=== PATIENT | female | born 1935 | race Caucasian/White ===

== ENCOUNTER 2018-07-01 19:22 | Emergency (ER) | payer MEDICARE ==
--- NOTE | 2018-07-01 20:09 | EDM.PDOC ---
ED HPI GENERAL MEDICAL PROBLEM - General Chief Complaint: Abdominal Pain Stated Complaint: MED VIA AMB Time Seen by Provider: 07/01/18 19:58 Source of Information: Reports: Patient, EMS, Family, RN Notes Reviewed History Limitations: Reports: Physical Impairment - History of Present Illness INITIAL COMMENTS - FREE TEXT/NARRATIVE: 82-year-old female presents to the emergency department today via EMS services, she is a jail resident with significant dementia difficult to obtain any history from her. Per jail notes she had a syncopal event earlier today became very hypotensive also complained of abdominal pain at that time. Now she has no complaints but is difficult to keep on track therefore the majority of this history and review of systems was taken from chart review and EMS - Related Data Allergies Allergy/AdvReac Type Severity Reaction Status Date / Time Penicillins Allergy Intermediate Cannot Verified 07/01/18 19:38 Remember guaifenesin Allergy Cannot Verified 07/01/18 19:38 Remember Sulfa (Sulfonamide Allergy Cannot Verified 07/01/18 19:38 Antibiotics) Remember Home Meds: Home Meds Losartan Potassium 100 mg PO DAILY 11/30/13 [History] PARoxetine HCl [Paroxetine HCl] 10 mg PO DAILY 11/30/13 [History] QUEtiapine Fumarate [Quetiapine Fumarate] 25 mg PO DAILY 07/01/18 [History] Past Medical History 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: Reports: Hypertension 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: Musculoskeletal History: Reports: Arthritis Neurological History: Reports: Alzheimers Disease, Other (See Below) Other Neuro History: chronic tension headache Psychiatric History: Reports: Anxiety, Dementia, Other (See Below) Other Psychiatric History: delusional disorder Social & Family History - Tobacco Use Smoking Status *Q: Never Smoker - Caffeine Use Caffeine Use: Reports: Coffee - Recreational Drug Use Recreational Drug Use: No ED ROS GENERAL - Review of Systems Review Of Systems: Unable To Obtain ED EXAM, GI/ABD - Physical Exam Exam: See Below Text/Narrative:: General: Elderly female not in any distress, alert HEENT: head is atraumatic normocephalic, eyes pupils equal round reactive to light, sclera clear no conjunctivitis appreciated. Ears tympanic membranes clear and pagan landmarks and light reflex are present bilaterally canals are clear. Nose no septal deviation, nares are clear, no blood present. Mouth mucosa is moist and pink no erythema or exudate noted in soft palate, tongue is midline uvula is midline , dentition is intact. Neck: Supple no thyromegaly no tracheal deviation. Nodes: Cervical nodes subclavicular nodes nontender no palpable lymphadenopathy noted. Lungs: Crackles in the bases bilaterally with good aeration throughout all lung mondragon CV: Regular rate and rhythm S1 and S2 appreciated no murmurs rubs or gallops noted. Abdomen: Soft, nontender, no palpable masses or organomegaly appreciated, no distention no guarding bowel sounds are present, . Neuro: Cranial nerves II through XII grossly intact Skin: Warm and dry, intact Extremities: No lower extremity edema appreciated, Course - Vital Signs Last Recorded V/S: Last Vital Signs Temp 97.0 F 07/01/18 19:33 Pulse 62 07/01/18 19:33 Resp 16 07/01/18 19:33 BP 119/72 07/01/18 19:33 Pulse Ox 99 07/01/18 19:33 - Orders/Labs/Meds Orders: Active Orders 24 hr Category Date Time Status EKG Documentation Completion [RC] ASDIRECTED Care 07/01/18 20:07 Active UA W/MICROSCOPIC [URIN] Urgent Lab 07/01/18 20:44 Ordered Lactated Ringers [Ringers, Lactated] 1,000 ml Med 07/01/18 20:15 Active IV ASDIRECTED EKG 12 Lead [EK] Stat Ther 07/01/18 20:07 Ordered Medication Orders Lactated Ringer's (Ringers, Lactated) 1,000 mls @ 500 mls/hr IV ASDIRECTED MARQUES Last Admin: 07/01/18 20:56 Dose: 500 mls/hr Labs: Laboratory Tests 07/01/18 07/01/18 07/01/18 Range/Units 20:06 20:06 20:06 WBC 11.5 H (4.5-11.0) K/uL RBC 4.24 (3.30-5.50) M/uL Hgb 12.6 (12.0-15.0) g/dL Hct 37.5 (36.0-48.0) % MCV 88 (80-98) fL MCH 30 (27-31) pg MCHC 34 (32-36) % Plt Count 234 (150-400) K/uL Neut % (Auto) 81 H (36-66) % Lymph % (Auto) 12 L (24-44) % [place] % (Auto) 6 (2-6) % Eos % (Auto) 0 L (2-4) % Baso % (Auto) 0 (0-1) % Sodium 139 L (140-148) mmol/L Potassium 3.7 (3.6-5.2) mmol/L Chloride 104 (100-108) mmol/L Carbon Dioxide 26 (21-32) mmol/L Anion Gap 12.7 (5.0-14.0) mmol/L BUN 17 D (7-18) mg/dL Creatinine 0.9 (0.6-1.0) mg/dL Est Cr Clr Drug Dosing 37.91 mL/min Estimated GFR (MDRD) > 60 (>60) Glucose 157 H (74-106) mg/dL Lactic Acid 1.3 (0.4-2.0) mmol/L Calcium 9.2 (8.5-10.1) mg/dL Total Bilirubin 0.4 (0.2-1.0) mg/dL AST 15 (15-37) U/L ALT 11 L (12-78) U/L Alkaline Phosphatase 72 (46-116) U/L Troponin I < 0.017 (0.000-0.056) ng/mL Total Protein 6.8 (6.4-8.2) g/dL Albumin 3.2 L (3.4-5.0) g/dL Globulin 3.6 H (2.3-3.5) g/dL Albumin/Globulin Ratio 0.9 L (1.2-2.2) Urine Color Urine Appearance Urine pH (4.5-8.0) Ur Specific [place] (1.008-1.030) Urine Protein (NEGATIVE) mg/dL Urine Glucose (UA) (NEGATIVE) mg/dL Urine Ketones (NEGATIVE) mg/dL Urine Occult Blood (NEGATIVE) Urine Nitrite (NEGATIVE) Urine Bilirubin (NEGATIVE) Urine Urobilinogen (NORMAL) mg/dL Ur Leukocyte Esterase (NEGATIVE) Urine RBC (0-5) Urine WBC (0-5) Ur Epithelial Cells Amorphous Sediment Urine Bacteria Urine Mucus 07/01/18 Range/Units 20:44 WBC (4.5-11.0) K/uL RBC (3.30-5.50) M/uL Hgb (12.0-15.0) g/dL Hct (36.0-48.0) % MCV (80-98) fL MCH (27-31) pg MCHC (32-36) % Plt Count (150-400) K/uL Neut % (Auto) (36-66) % Lymph % (Auto) (24-44) % [place] % (Auto) (2-6) % Eos % (Auto) (2-4) % Baso % (Auto) (0-1) % Sodium (140-148) mmol/L Potassium (3.6-5.2) mmol/L Chloride (100-108) mmol/L Carbon Dioxide (21-32) mmol/L Anion Gap (5.0-14.0) mmol/L BUN (7-18) mg/dL Creatinine (0.6-1.0) mg/dL Est Cr Clr Drug Dosing mL/min Estimated GFR (MDRD) (>60) Glucose (74-106) mg/dL Lactic Acid (0.4-2.0) mmol/L Calcium (8.5-10.1) mg/dL Total Bilirubin (0.2-1.0) mg/dL AST (15-37) U/L ALT (12-78) U/L Alkaline Phosphatase (46-116) U/L Troponin I (0.000-0.056) ng/mL Total Protein (6.4-8.2) g/dL Albumin (3.4-5.0) g/dL Globulin (2.3-3.5) g/dL Albumin/Globulin Ratio (1.2-2.2) Urine Color Yellow Urine Appearance Clear Urine pH 6.0 (4.5-8.0) Ur Specific [place] 1.010 (1.008-1.030) Urine Protein Negative (NEGATIVE) mg/dL Urine Glucose (UA) Normal (NEGATIVE) mg/dL Urine Ketones Negative (NEGATIVE) mg/dL Urine Occult Blood Negative (NEGATIVE) Urine Nitrite Negative (NEGATIVE) Urine Bilirubin Negative (NEGATIVE) Urine Urobilinogen Normal (NORMAL) mg/dL Ur Leukocyte Esterase Negative (NEGATIVE) Urine RBC 0-5 (0-5) Urine WBC 0-5 (0-5) Ur Epithelial Cells Rare Amorphous Sediment Few Urine Bacteria Not seen Urine Mucus Few Meds: Medications Generic Name Dose Route Start Last Admin Trade Name Freq PRN Reason Stop Dose Admin Lactated Ringer's 1,000 mls @ 500 mls/hr 07/01/18 20:15 07/01/18 20:56 Ringers, Lactated IV 500 mls/hr ASDIRECTED MARQUES Administration Departure - Departure Time of Disposition: 21:10 Disposition: DC/Tfer to [facility] Condition: Poor Clinical Impression: Syncope Qualifiers: Syncope type: unspecified Qualified Code(s): R55 - Syncope and collapse - Discharge Information Referrals: Waqas Dick MD [Primary Care Provider] - Forms: ED Department Discharge Additional Instructions: Please follow-up with your primary care provider next 3-5 days for reevaluation , please consider side effect of quitapine - My Orders Last 24 Hours: My Active Orders 07/01/18 20:07 EKG Documentation Completion [RC] ASDIRECTED EKG 12 Lead [EK] Stat 07/01/18 20:15 Lactated Ringers [Ringers, Lactated] 1,000 ml IV ASDIRECTED 07/01/18 20:44 UA W/MICROSCOPIC [URIN] Urgent - Assessment/Plan Last 24 Hours: My Active Orders 07/01/18 20:07 EKG Documentation Completion [RC] ASDIRECTED EKG 12 Lead [EK] Stat 07/01/18 20:15 Lactated Ringers [Ringers, Lactated] 1,000 ml IV ASDIRECTED 07/01/18 20:44 UA W/MICROSCOPIC [URIN] Urgent Plan: Assessment Acuity = acute Site and laterality = syncopal event complicated in a patient with history of extensive Alzheimer's dementia Etiology = suspicious for reaction with quetiapine Manifestations = none Location of injury = Home Lab values = CBC, CMP, troponin all negative EKG does demonstrate premature atrial complexes but otherwise sinus rhythm Plan I did review lab work and suspicion of drug side effect with family plan is discharge back to jail follow-up primary care in 3-5 days for reevaluation This note was dictated using Factual voice recognition software please call with any questions on syntax or grammar.
[2018-07-01] MEDS ORDERED: Lactated Ringers 1,000 ML IV SCH (20:15)
== END 2018-07-01 21:57 ==
LOC: JP.ED 19:22
DX: R55 Syncope and collapse (principal); G30.9 Alzheimer's disease, unspecified; F02.80 Dementia in other diseases classified elsewhere, unspecified severity, without behavioral disturbance, psychotic disturbance, mood disturbance, and anxiety; I10 Essential (primary) hypertension; Z79.899 Other long term (current) drug therapy; Z88.0 Allergy status to penicillin; Z88.2 Allergy status to sulfonamides; Z88.8 Allergy status to other drugs, medicaments and biological substances
CPT/HCPCS: 36415; 80053; 81001; 83605; 84484; 85025; 93005; 96360; 99285; J7120; 99284

== ENCOUNTER 2020-10-04 18:26 | Emergency (ER) | payer MEDICARE ==
--- NOTE | 2020-10-04 19:22 | EDM.PDOC ---
ED HPI GENERAL MEDICAL PROBLEM - General Stated Complaint: VIA [place] FOR FALL Time Seen by Provider: 10/04/20 19:05 Source of Information: Reports: EMS, [facility] Records History Limitations: Reports: Physical Impairment - History of Present Illness INITIAL COMMENTS - FREE TEXT/NARRATIVE: 85-year-old female brought in by EMS with left-sided hip pain after being found on the floor next to her bed. She is in the memory care area by half-way, significant dementia and is unable to provide a history or self. She seems to be very sensitive however to any movement, palpation, or use of the left lower extremity. She was found at 4 PM, assisted into her bed but was still complaining of pain 2 hours later so ambulance was called. Onset: Today Duration: Hour(s): (Injury occurred 3 hours ago) Location: Reports: Lower Extremity, Left Quality: Reports: Sharp Worsens with: Reports: Movement Associated Symptoms: Reports: Other (Significant dementia, denies any other symptoms and refused pain medicine) denies pain Pain Score (Numeric/FACES): 0 - Related Data Allergies Allergy/AdvReac Type Severity Reaction Status Date / Time Penicillins Allergy Intermediate Cannot Verified 10/04/20 19:26 Remember guaifenesin Allergy Cannot Verified 10/04/20 19:26 Remember Sulfa (Sulfonamide Allergy Cannot Verified 10/04/20 19:26 Antibiotics) Remember Home Meds: Home Meds Losartan Potassium 100 mg PO DAILY 11/30/13 [History] PARoxetine HCL [Paroxetine HCl] 10 mg PO DAILY 11/30/13 [History] QUEtiapine Fumarate [Quetiapine Fumarate] 25 mg PO DAILY 07/01/18 [History] Past Medical History 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: Reports: Hypertension 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: Musculoskeletal History: Reports: Arthritis Neurological History: Reports: Alzheimers Disease, Other (See Below) Other Neuro History: chronic tension headache Psychiatric History: Reports: Anxiety, Dementia, Other (See Below) Other Psychiatric History: delusional disorder Social & Family History - Caffeine Use Caffeine Use: Reports: Coffee Review of Systems - Review of Systems Review Of Systems: See Below Reason Not Obtained: Review of symptoms is very limited due to dementia Constitutional: Reports: No Symptoms Respiratory: Reports: No Symptoms GI/Abdominal: Denies: Nausea, Vomiting Skin: Reports: Pallor. Denies: Rash Neurological: Denies: Headache ED EXAM, GENERAL - Physical Exam Exam: See Below Exam Limited By: No Limitations General Appearance: Alert, No Apparent Distress Eye Exam: Bilateral Eye: EOMI Head: Atraumatic Respiratory/Chest: No Respiratory Distress, Lungs Clear GI/Abdominal: Soft, Non-Tender Extremities: Other (Slight shortening of the left extremity but no rotation is seen. She is exquisitely tender to any palpation around the left hip or with passive range of motion of the hip) Neurological: Alert. No: Oriented (Disoriented to place and time, significant dementia and confusion) Skin Exam: Pallor (Appears pale) Course - Vital Signs Last Recorded V/S: Last Vital Signs Temp 97.7 F 10/04/20 20:38 Pulse 75 10/04/20 20:38 Resp 16 10/04/20 20:38 BP 136/76 10/04/20 20:38 Pulse Ox 100 10/04/20 20:38 - Orders/Labs/Meds Orders: Active Orders 24 hr Category Date Time Status Hip Min 2V or 3V w Pelvis Lt [CR] Stat Exams 10/04/20 19:26 Taken Labs: Laboratory Tests 10/04/20 10/04/20 Range/Units 19:38 19:38 WBC 14.0 H (4.5-11.0) K/uL RBC 3.97 (3.30-5.50) M/uL Hgb 11.8 L (12.0-15.0) g/dL Hct 35.7 L (36.0-48.0) % MCV 90 (80-98) fL MCH 30 (27-31) pg MCHC 33 (32-36) % Plt Count 233 (150-400) K/uL Neut % (Auto) 83 H (36-66) % Lymph % (Auto) 10 L (24-44) % [place] % (Auto) 6 (2-6) % Eos % (Auto) 0 L (2-4) % Baso % (Auto) 0 (0-1) % Sodium 133 L (140-148) mmol/L Potassium 3.7 (3.6-5.2) mmol/L Chloride 97 L (100-108) mmol/L Carbon Dioxide 29 (21-32) mmol/L Anion Gap 10.7 (5.0-14.0) mmol/L BUN 11 (7-18) mg/dL Creatinine 0.8 (0.6-1.0) mg/dL Est Cr Clr Drug Dosing TNP Estimated GFR (MDRD) > 60 (>60) Glucose 131 H (74-106) mg/dL Calcium 8.9 (8.5-10.1) mg/dL Creatine Kinase 61 (26-192) U/L - Re-Assessments/Exams Free Text/Narrative Re-Assessment/Exam: 10/04/20 19:25 An x-ray of the left hip and pelvis will be obtained, also CBC BMP and CK to rule out rhabdomyolysis. 10/04/20 20:27 X-ray showed an impacted left subcapsular femoral neck fracture. White count was only mildly elevated, hemoglobin and BMP were reassuring. CK was normal. Discussed with orthopedics in [place] as we have no bed for orthopedics, and [facility] kindly accepted the patient for transfer. Departure - Departure Time of Disposition: 21:14 Disposition: DC/Tfer to [facility] 02 Clinical Impression: Fracture of neck of femur, hip - Discharge Information Referrals: PCP,None [Primary Care Provider] - Forms: ED Department Discharge Care Plan Goals: Patient was transferred by ambulance to [facility] for orthopedic evaluation and likely surgical repair of a fractured left subcapsular femoral neck. Sepsis Event Note (ED) - Focused Exam Vital Signs: Vital Signs Temp Pulse Resp BP Pulse Ox 10/04/20 20:38 97.7 F 75 16 136/76 100 10/04/20 19:19 98.1 F 89 14 160/83 H 98 10/04/20 19:17 98.1 F 89 14 160/83 H 98 - My Orders Last 24 Hours: My Active Orders 10/04/20 19:26 Hip Min 2V or 3V w Pelvis Lt [CR] Stat - Assessment/Plan Last 24 Hours: My Active Orders 10/04/20 19:26 Hip Min 2V or 3V w Pelvis Lt [CR] Stat
--- NOTE | 2020-10-05 09:44 | CR ---
Hip Min 2V or 3V w Pelvis Lt CLINICAL HISTORY: Fall, pain FINDINGS: There is moderate osteoarthritic change in both hips. There is moderate to periarticular spurring on the femoral head and acetabulum and the left hip. There is a vague linear lucency in the subcapital region of the left femur. This is most likely superimposed. There is some calcification near the superior acetabulum as well as some calcification of the ischial tuberosity. No fracture is seen. Bones are osteopenic IMPRESSION: Osteoarthritis with moderate periarticular spurring. Vague linear lucency transversely across a subcapital region may be superimposed. If clinical symptomatology persists or worsens a repeat exam is recommended. CT left hip would also be consideration.
== END 2020-10-04 21:05 ==
LOC: JP.ED 18:26
DX: S72.002A Fracture of unspecified part of neck of left femur, initial encounter for closed fracture (principal); I10 Essential (primary) hypertension; F41.9 Anxiety disorder, unspecified; G30.9 Alzheimer's disease, unspecified; F02.80 Dementia in other diseases classified elsewhere, unspecified severity, without behavioral disturbance, psychotic disturbance, mood disturbance, and anxiety; Z88.2 Allergy status to sulfonamides; Z88.0 Allergy status to penicillin; Z88.8 Allergy status to other drugs, medicaments and biological substances; Z79.899 Other long term (current) drug therapy; W19.XXXA Unspecified fall, initial encounter
CPT/HCPCS: 36415; 73502-26-LT; 73502-LT; 80048; 82550; 85025; 99285